=== PATIENT | male | born 1960 | race Caucasian/White ===

== ENCOUNTER 2019-07-10 08:08 | Emergency (ER) | payer MEDICAID ==
[~2019-07-10] VITALS: Ht 185.4 cm; Wt 109.1 kg
[2019-07-10 08:40] LABS: BASOPHILS # (AUTO) 0.1 X10'3 (0-0.2); BASOPHILS % (AUTO) 1.1 % (0-1); EOSINOPHILS # (AUTO) 0.5 X10'3 (0-0.9); EOSINOPHILS % (AUTO) 7.7 % (0-6); HEMATOCRIT 46.7 % (42.0-52.0); LYMPHOCYTES # (AUTO) 1.6 X10'3 (1.1-4.8); LYMPHOCYTES % (AUTO) 25.4 % (21-51); MEAN CORPUSCULAR HEMOGLOBIN 32.1 PG (27.0-31.0); MEAN CORPUSCULAR HGB CONC 34.4 g/dL (33.0-36.5); MEAN CORPUSCULAR VOLUME 93.4 FL (78-98); MEAN PLATELET VOLUME 7.8 FL (7.4-10.4); MONOCYTES # (AUTO) 0.6 X10'3 (0-0.9); MONOCYTES % (AUTO) 9.6 % (2-12); NEUTROPHILS # (AUTO) 3.5 X10'3 (1.8-7.7); NEUTROPHILS % (AUTO) 56.2 % (42-75); PLATELET COUNT 257 X10'3 (140-440); RED BLOOD COUNT 4.99 X10'6 (4.70-6.10); WHITE BLOOD COUNT 6.1 X10'3 (4.5-11.0)
[2019-07-10 08:44] LABS: CLARITY,URINE SLIGHTLY CLOUDY (Clear); COLOR,URINE YELLOW (Yellow); GLUCOSE, URINE NEGATIVE (Neg); KETONES,URINE NEGATIVE (Neg); LEUKOCYTE ESTERASE ,URINE NEGATIVE (Neg); NITRITES, URINE NEGATIVE (Neg); OCCULT BLOOD,URINE NEGATIVE (Neg); PROTEIN,URINE NEGATIVE (Neg)
[2019-07-10 08:51] LABS: ALANINE AMINOTRANSFERASE 49 U/L (12-78); ALBUMIN 4.1 G/DL (3.4-5.0); ALBUMIN/GLOBULIN RATIO 1.4 (1.1-1.5); ALKALINE PHOSPHATASE 56 IU/L (46-116); ANION GAP 6 (8-16); ASPARTATE AMINO TRANSFERASE 20 U/L (10-37); BILIRUBIN,TOTAL 1.2 MG/DL (0.1-1.0); BLOOD UREA NITROGEN 14 MG/DL (7-18); BUN/CREATININE RATIO 13.5 (5.4-32.0); CALCIUM 9.2 MG/DL (8.5-10.1); CHLORIDE 108 MMOL/L (99-107); CREATININE 1.04 MG/DL (0.60-1.10); GLUCOSE 100 MG/DL (70-104); LIPASE 96 U/L (73-393); POTASSIUM 3.9 MMOL/L (3.5-5.1); SODIUM 144 MMOL/L (135-145); TOTAL CARBON DIOXIDE 29.9 MMOL/L (24-32); TOTAL PROTEIN 7.1 G/DL (6.4-8.2); eGFR 73 ML/MIN
[2019-07-10 09:04] LABS: UA COLLECTION TYPE CLN CATCH MIDSTREAM
[2019-07-10 09:05] LABS: BACTERIA,URINE NONE SEEN /HPF (Neg); RBC,URINE NONE SEEN /HPF (0-2); WBC,URINE 0-4 /HPF (0-4)
[2019-07-10 09:06] LABS: MUCUS STRANDS MANY /LPF (Neg); SQUAMOUS EPITHELIAL CELL,UR FEW /LPF (FEW)
[2019-07-10] MEDS ORDERED: morphine 4 MG/ML inj SYRINge IV PRN ×5 (09:15→12:45)
[2019-07-10] MEDS ORDERED: normal saline 1000ML IV soln IVB ONE (09:15)
[2019-07-10] MEDS ORDERED: ondansetron/PF 4mg/2ml inj IV ONE (09:15)
--- NOTE | 2019-07-10 09:58 | NUR ---
pt refused pain medication at this time
[2019-07-10] MEDS ORDERED: BUPIVAcaine/PF 2.5 mg/ml (0.25%) 30ml vial ONE (10:03)
[2019-07-10] MEDS ORDERED: ceFAZolin 1000mg inj ONE (10:03)
[2019-07-10] MEDS ORDERED: midazolam 2 mg/2 ml injection ONE (12:18)
[2019-07-10] MEDS ORDERED: fentaNYL /PF 50mcg/ml 5ml ampule ONE (12:18)
[2019-07-10] MEDS ORDERED: ceFOXitin 2 GM ADDVANTGE BAG 50 ML IV ONE (12:19)
[2019-07-10] MEDS ORDERED: ringers solution, lacted 1,000 ML IV SCH ×2 (12:43)
[2019-07-10] MEDS ORDERED: ondansetron/PF 4mg/2ml inj IV PRN ×2 (12:45)
[2019-07-10] MEDS ORDERED: meperidine/PF 25mg/ml syringe IV PRN ×6 (12:45)
[2019-07-10] MEDS ORDERED: proCHLORperazine 10 MG/2 ml inj IV PRN ×2 (12:45)
[2019-07-10] MEDS ORDERED: rocuronium 10mg/ml inj IV ONE (13:00)
[2019-07-10] MEDS ORDERED: dexamethasone sod phosphate 4mg/ml inj. ONE (13:00)
[2019-07-10] MEDS ORDERED: propofol inj 20 ML IV ONE (13:00)
[2019-07-10] MEDS ORDERED: neostigmine methylsulfate 1 MG/ML 10ml vial ONE (13:04)
[2019-07-10] MEDS ORDERED: ondansetron/PF 4mg/2ml inj ONE (13:04)
[2019-07-10] MEDS ORDERED: glycopyrrolate 0.2mg/ml inj ONE (13:04)
[2019-07-10 13:25] VITALS: BP 109/68
--- NOTE | 2019-07-10 13:25 | NUR ---
Received from OR via [facility] , accompanied by Anesthesiologist TRACY and report given by Anesthesiolgist. PATIENT WITH 20G PIV IN LEFT UE RUNNING LR AT 100. DENIES PAIN. 3 ABDOMINAL BANDAIDS PRESENT AND ALL ARE CDI. NO DRAINAGE. VSS. Addendum: 07/10/19 at 1335 by Petr Magana RN, RN Amended: Links added.
[2019-07-10 13:35] VITALS: BP 97/57
[2019-07-10 13:45] VITALS: BP 90/52
[2019-07-10 13:55] VITALS: BP 94/55
--- NOTE | 2019-07-10 14:05 | NUR ---
ALL DC CRITERIA HAS BEEN MET. IV TAKEN OUT WITHOUT COMPLICATIONS. ALL INSTRUCTIONS COVERED AND ALL QUESTIONS ANSWERED. DRESSINGS CDI. OUT VIA WHEELCHAIR TO PERSONAL VEHICLE WHERE PATIENT WAS SECURED IN AND DRIVEN HOME BY FAMILY. Addendum: 07/10/19 at 1433 by Petr Maagna RN, RN Amended: Links added.
== END 2019-07-10 14:05 | disposition home or self-care (01) ==
LOC: ER 08:08
DX: K80.50 Calculus of bile duct without cholangitis or cholecystitis without obstruction (principal); R10.11 Right upper quadrant pain; R11.0 Nausea
CPT/HCPCS: 36415; 47562; 80053; 81001; 83690; 85025; 85610; 99285; J0690; J0694; J1100; J2250; J2405; J2704; J2710; J3010; J3490; J7030; J7120; 99283; A4215; A4618; A7000